=== PATIENT | female | born 1955 | race Caucasian/White ===

== ENCOUNTER 2022-10-15 07:42 | Outpatient (REF) | payer BC, SELFPAY | END 2022-10-15 07:43 | disposition home or self-care (01) | LOC: HO.HOSX 07:42 | PROVIDERS: Visit Provider Orthopaedic Surgery | DX: Z13.89 Encounter for screening for other disorder (principal) ==

== ENCOUNTER 2022-10-16 09:48 | Outpatient (REF) | payer BC, SELFPAY ==
--- NOTE | ~2022-10-16 | XR_ITS ---
EXAMINATION: XR HIP, LEFT WITH AP PELVIS CLINICAL INFORMATION: Pain. COMPARISON: None available. TECHNIQUE: An AP view of the pelvis and a frog-leg lateral view of the left hip were obtained. FINDINGS: No fracture. Alignment is anatomic. Hip joint spaces are well-maintained. The femoral heads are smooth. The tissues are unremarkable. An inferior vena cava filter device is seen. There are degenerative changes of the lower lumbar spine. Multiple pelvic phleboliths are noted. XR/XR hip LT min 2V IMPRESSION: Unremarkable radiographic appearance of the pelvis and left hip. EXAMINATION: XR KNEE, LEFT CLINICAL INFORMATION: Pain. COMPARISON: None available. TECHNIQUE: AP, lateral and sunrise views of the left knee were obtained. FINDINGS: Bony alignment and mineralization are normal. There is moderately severe asymmetric narrowing of the medial joint space compartment. The lateral and patellofemoral joint space compartments are well-maintained. There is tricompartment peripheral osteophyte formation. No fracture or dislocation is seen. There is a moderately large left knee joint effusion. No foreign body is seen. IMPRESSION: 1. There is tricompartment osteoarthritic change of the left knee, most pronounced of the lateral joint space compartment, where it is moderately severe. 2. No fracture or dislocation is seen. 3. There is a moderately large joint effusion.
--- NOTE | ~2022-10-16 | XR_ITS ---
EXAMINATION: XR HIP, LEFT WITH AP PELVIS CLINICAL INFORMATION: Pain. COMPARISON: None available. TECHNIQUE: An AP view of the pelvis and a frog-leg lateral view of the left hip were obtained. FINDINGS: No fracture. Alignment is anatomic. Hip joint spaces are well-maintained. The femoral heads are smooth. The tissues are unremarkable. An inferior vena cava filter device is seen. There are degenerative changes of the lower lumbar spine. Multiple pelvic phleboliths are noted. XR/XR knee LT 3V IMPRESSION: Unremarkable radiographic appearance of the pelvis and left hip. EXAMINATION: XR KNEE, LEFT CLINICAL INFORMATION: Pain. COMPARISON: None available. TECHNIQUE: AP, lateral and sunrise views of the left knee were obtained. FINDINGS: Bony alignment and mineralization are normal. There is moderately severe asymmetric narrowing of the medial joint space compartment. The lateral and patellofemoral joint space compartments are well-maintained. There is tricompartment peripheral osteophyte formation. No fracture or dislocation is seen. There is a moderately large left knee joint effusion. No foreign body is seen. IMPRESSION: 1. There is tricompartment osteoarthritic change of the left knee, most pronounced of the lateral joint space compartment, where it is moderately severe. 2. No fracture or dislocation is seen. 3. There is a moderately large joint effusion.
== END 2022-10-16 09:49 | disposition home or self-care (01) ==
LOC: HO.HOSX 09:48
PROVIDERS: Visit Provider Orthopaedic Surgery
DX: M25.562 Pain in left knee (principal); M25.552 Pain in left hip
CPT/HCPCS: 73502; 73562

== ENCOUNTER 2022-10-16 09:48 | Outpatient (AMB) | payer BC, SELFPAY ==
--- NOTE | 2022-10-16 09:54 | MHC.OFFVIS ---
Intake Intake Visit Reasons: New Patient - Left Knee Pain Intake Note: Kandis is a 66 year old female who presents today as a new patient for a evaluation for her left knee pain and left hip pain. She describes her left knee pain as sharp in nature. She was seen at [facility] several years ago. She did have both cortisone injections and viscosupplementation injections which gave her minimal relief. She was told that she would likely need left total knee replacement surgery at some point in the future. She is trying to hold off on surgery for as long as she can. The patient did undergo open left knee lateral meniscectomy surgery as a teenager when a family member fell on her left leg. She does try to exercise on a daily basis. She has also done physical therapy exercises which gave her some relief. The patient describes her left hip pain as aching in nature. She notices her left pain mostly when she sleeps on her left side. She denies any numbness or tingling in either of her legs. She has tried Tylenol and ibuprofen which gave her minimal relief. Allergies naproxen Allergy (Intermediate, Verified 10/16/22 10:03) Unknown propoxyphene [From Darvon] Allergy (Intermediate, Verified 10/16/22 10:03) Unknown Sulfa (Sulfonamide Antibiotics) Allergy (Intermediate, Verified 10/16/22 10:03) Unknown Medication List - Last Reconciled 10/16/22 by Ariel Zambrano MD lisinopril 5 mg PO DAILY [facility] Social History (Updated 10/16/22 @ 10:04 by Ramin Peters) Alcohol intake: current Patient Tobacco Use Status: Never used Tobacco Physical Exam Const Other: Well-nourished well-developed very friendly female awake alert and oriented x3 in no acute distress Extrem Other: Bilateral lower extremity examination shows good capillary refill, no skin lesions noted, normal sensation light touch Left knee examination shows a minimal effusion, palpable crepitus with range of motion, pain with range of motion, range of motion from -3 degrees to 115 degrees, no instability Left hip examination shows slightly decreased range of motion when compared to her right hip, tenderness over her bursa, no overlying skin lesions Results Reviewed Results Reviewed: X-rays of the patient's left knee show moderate to severe joint space narrowing and subchondral sclerosis most significant in the lateral compartment, no acute bony abnormalities X-rays of the patient's left hip show mild diffuse joint space narrowing, no acute bony abnormalities Assessment & Plan Assessment & Plan (1) Left hip pain: Code(s): M25.552 - Pain in left hip Plan: Ms. Mitchell presents with left knee pain due to degenerative joint disease as well as left hip pain due to greater trochanteric bursitis as well as lumbar spine pathology. I had a lengthy discussion with the patient regarding the treatment options. We will hold off on a cortisone injection at this time. I did give her a prescription for a Medrol Dosepak. She will continue with her home exercise program. She will also continue with her home stretching program. She will follow up with me on an as-needed basis should her symptoms worsen in any way. I spent 22 minutes in reviewing the patient's records and imaging studies, seeing the patient and documenting in the medical record. (2) Left knee pain: Code(s): M25.562 - Pain in left knee Orders: Orders XR knee LT 3V Today M25.562 - Pain in left knee XR hip LT min 2V Today M25.552 - Pain in left hip Medications: New methylprednisolone (Medrol (Sy)) PO PER PKG DIR 21 ea 0RF Coding Level of Care Code New Pt Level 2 (41862) Diagnoses Left hip pain M25.552 Left knee pain M25.562
== END 2022-10-16 10:47 | disposition home or self-care (01) ==
PROVIDERS: Visit Provider Orthopaedic Surgery
DX: M25.552 Pain in left hip (principal); M25.562 Pain in left knee
CPT/HCPCS: 99202

== ENCOUNTER 2022-12-15 08:23 | Outpatient (REF) | payer MEDICARE, SELFPAY ==
--- NOTE | ~2022-12-15 | XR_ITS ---
EXAMINATION: XR LUMBOSACRAL SPINE CLINICAL INFORMATION: Low back pain COMPARISON: None available. TECHNIQUE: Three views of the lumbosacral spine. FINDINGS: There is marked dextroscoliosis of lumbar spine. There is no evidence of fractures or spondylolysis listhesis. Evaluation of all lateral view is limited due to significant scoliosis there is marginal spurring. The level of L4-L5 on the right with bridging osteophyte formation and on the left at the level of L2-L3. There is IVC filter projecting over the lateral aspect of lower lumbar spine. Soft tissues unremarkable. XR/XR lumbar spine 2-3V IMPRESSION: Multilevel degenerative changes and dextroscoliosis.
== END 2022-12-15 08:24 | disposition home or self-care (01) ==
LOC: HO.HOSX 08:23
PROVIDERS: Visit Provider Orthopaedic Surgery
DX: M54.50 Low back pain, unspecified (principal)
CPT/HCPCS: 72100; 99212

== ENCOUNTER 2022-12-15 08:23 | Outpatient (AMB) | payer MEDICARE, SELFPAY ==
--- NOTE | 2022-12-15 08:35 | A.OFFVIS_ITS ---
Intake Vital Signs 12/15/22 08:37 Height 5 ft 5 in Weight 130 lb BMI 21.6 Intake Visit Reasons: new Prob - lower back pain Intake Note: Kandis 67 yr old female presents today for a new problem visit for her lumbar pain. States pain is at lumbar and hip radiating down her leg. Patient last seen with Dr. Zambrano for her hip and knees,who Rx'd patient prednisone, which only provided 2 days of relief. The patient states that she was diagnosed with scoliosis at age 17. She did not wear a brace. She did have cortisone injections given into her low back several years ago which gave her minimal relief. The patient reports pain and weakness in her right leg. The patient has difficulty walking because of the pain. She has tried Tylenol and anti- inflammatory medicines as well as a Medrol Dosepak which gave her minimal relief. The patient has done physical therapy for 12 weeks over the last 6 months which aggravated her pain. Allergies naproxen Allergy (Intermediate, Verified 12/15/22 08:38) Unknown propoxyphene [From Darvon] Allergy (Intermediate, Verified 12/15/22 08:38) Unknown Sulfa (Sulfonamide Antibiotics) Allergy (Intermediate, Verified 12/15/22 08:38) Unknown Medication List - Last Reconciled 12/15/22 by Ariel Zambrano MD lisinopril 5 mg PO DAILY methylprednisolone (Medrol (Sy)) PO PER [facility] Social History (Updated 12/15/22 @ 08:39 by Terrie Daigle [facility]) Alcohol intake: current Patient Tobacco Use Status: Never used Tobacco Current occupational status: employed Current occupation: hygienist Physical Exam Vital Signs: BMI result Body Mass Index 21.6 Const Other: Well-nourished well-developed very friendly female awake alert and oriented x3 in no acute distress Back/Spine/Pelvis Other: Low back examination shows right-sided paraspinal muscle tenderness, pain with range of motion, positive straight leg raise test on the right at 70 degrees, 4/5 strength with testing of her right hip flexors and knee extensors when compared to 5/5 strength on her left Results Reviewed Results Reviewed: X-rays of the patient's lumbar spine taken today show severe diffuse degenerative disc disease, scoliosis, no acute bony abnormalities Assessment & Plan Assessment & Plan (1) Low back pain: Code(s): M54.50 - Low back pain, unspecified Plan: Ms. Mitchell presents with progressively worsening low back pain which radiates down her right leg the well as associated right leg weakness most likely due to lumbar stenosis. Thus, I will send the patient for a MRI of her lumbar spine for further evaluation. If the patient does have significant stenosis or a disc herniation I will refer her to the spine center here at [facility] for further evaluation. Feel free to call me at any time should questions regarding her orthopedic management arise. I spent 22 minutes in reviewing the patient's records and imaging studies, seeing the patient and documenting in the medical record. Orders: Orders XR lumbar spine 2-3V Today M54.50 - Low back pain, unspecified MR lumbar spine wo con Today M54.50 - Low back pain, unspecified, M79.604 - Pain in right leg Coding Level of Care Code Est Pt Level 2 (62036) Diagnoses Low back pain M54.50
[2022-12-15 08:37] VITALS: BMI 21.6
== END 2022-12-15 08:49 | disposition home or self-care (01) ==
PROVIDERS: Visit Provider Orthopaedic Surgery
DX: M54.50 Low back pain, unspecified (principal)
CPT/HCPCS: 99212

== ENCOUNTER 2023-01-20 18:16 | Outpatient (REF) | payer MEDICARE, SELFPAY ==
--- NOTE | ~2023-01-20 | MR_ITS ---
EXAMINATION: MR LUMBAR SPINE WITHOUT CONTRAST CLINICAL INFORMATION: 67-year-old with left leg pain. COMPARISON: None available. TECHNIQUE: MRI of the lumbar spine was obtained using routine sequences without contrast. FINDINGS: Coronal Alignment: There is zthotvrk-wf-iycjmc lumbar dextroscoliosis, convex to the right at L2 with mild hxir-zj-djzde lateral listhesis at L2-L3, L3-L4 and L4-L5 and slight xruxe-um-cylj lateral listhesis at L1-L2. There is also mild sdner-ag-mvsy lateral listhesis at T11-T12. Sagittal Alignment: There is mild grade 1 degenerative spondylolisthesis at L3-L4 and trace anterior marginal spondylolisthesis at L2-L3 with mild retrolisthesis at L1-L2. Lumbosacral Junction: Normal. Vertebral Bodies: Mild chronic right lateral wedging of the L5 vertebral body is noted. Otherwise vertebral body heights are well maintained. No acute or nonhealed fractures. Disc Spaces and Endplates: Moderately advanced multilevel DDD and spondylosis seen throughout the visualized thoracolumbar spine with severe disc space height loss at L4-L5 and L5-S1 and at T11-T12. There is multilevel disc desiccation. There are Schmorl's nodes at multiple levels with multilevel anterolateral spondylosis. Spinal Canal: No abnormal developmental findings. Bone Marrow: There are type I degenerative marrow signal changes along the endplates at L4-L5 and L5-S1 and at T11-T12 with type II marrow signal changes along the endplates at L4-L5. There is a 2.4 cm benign vertebral hemangioma in the L2 vertebral body. No suspicious marrow-replacing process or bone marrow edema. Conus Medullaris: Terminates at L1. Morphology and signal is normal. Intradural Nerve Roots: Within normal limits. L5-S1: There is concentric disc-osteophyte complex asymmetric to the right, with enqn-br-vrrhazxy facet arthrosis, right more than left. There is slight flattening of the ventral dural sac asymmetric to the right without significant central canal stenosis. There is mild narrowing of the right lateral recess without definite neural impingement. There is anyrsazb-wc-pubsog right-sided neural foraminal stenosis with facet spurring and disc-osteophyte complex abutting the exiting right L5 nerve root. Mild foraminal narrowing noted on the left. L4-L5: There is concentric disc-osteophyte complex asymmetric to the right, with mild flattening of the dural sac, right more than left, with ligamentum flavum thickening and iqpb-pj-jdparznr facet arthropathy, right more than left. No significant central canal stenosis. There is moderate right subarticular recess narrowing with slight encroachment on the traversing right L5 nerve root. There is moderate right-sided neural foraminal narrowing without definite exiting neural impingement. L3-L4: Unroofing of the posterior disc margin is noted with superimposed diffuse disc bulging asymmetric to the left, with flattening of the ventral dural sac. Ligamentum flavum thickening is noted, left more than right, with mild right and moderate left-sided facet arthropathy. Mild central spinal canal stenosis is noted with dddf-pd-vfszrybp narrowing of the subarticular recesses bilaterally without definite traversing neural impingement. There is moderate left and mild right-sided neural foraminal stenosis. L2-L3: Shallow left subarticular disc protrusion noted with flattening of the left side of the dural sac with mild facet arthrosis and ligamentum flavum thickening without central canal stenosis. There is mild narrowing of the left subarticular zone without traversing neural impingement. No significant neural foraminal stenosis. L1-L2: Mild disc-osteophyte complex noted asymmetric to the right with mild flattening of the dural sac and mild facet arthropathy on the left. No central canal stenosis. Mild narrowing of the left subarticular recess noted. No significant neural foraminal stenosis. Paravertebral and Included Extraspinal Soft Tissues: There is posterior paraspinal and psoas muscle sarcopenia. Otherwise unremarkable. MR/MR lumbar spine wo con IMPRESSION: 1. Lumbar dextroscoliosis, with multilevel lateral subluxations and grade 1 degenerative spondylolisthesis at L3-L4. 2. Multilevel DDD and spondylosis, with multilevel disc-osteophyte complexes and disc bulging with multilevel bilateral facet arthropathy and ligamentum flavum thickening. 3. Mild spinal canal stenosis at L3-L4 with rdpj-rp-ixfjzfwo subarticular recess narrowing at this level. There is right subarticular recess stenosis at L4-L5, mild right lateral recess stenosis at L5-S1 and mild left subarticular recess stenosis at L2-L3. 4. Multilevel bilateral neural foraminal stenosis, most apparent on the right at L5-S1 and, to lesser degrees, on the left at L3-L4 and on the right at L4-L5. 5. Mild chronic right lateral wedging of the L5 vertebral body. No acute or nonhealed fractures. 6. Posterior paraspinal and psoas muscle sarcopenia.
== END 2023-01-20 18:17 | disposition home or self-care (01) ==
LOC: HO.MRI 18:16
PROVIDERS: Visit Provider Orthopaedic Surgery
DX: M54.50 Low back pain, unspecified (principal); M79.604 Pain in right leg
CPT/HCPCS: 72148

== ENCOUNTER 2023-02-26 12:42 | Outpatient (AMB) | payer MEDICARE, SELFPAY ==
--- NOTE | 2023-02-26 13:02 | A.OFFVIS_ITS ---
Intake Intake Visit Reasons: low back pain Financial Administrative Assistant Required: No Allergies naproxen Allergy (Intermediate, Verified 12/15/22 08:38) Unknown propoxyphene [From Darvon] Allergy (Intermediate, Verified 12/15/22 08:38) Unknown Sulfa (Sulfonamide Antibiotics) Allergy (Intermediate, Verified 12/15/22 08:38) Unknown [facility] Social History (Updated 12/15/22 @ 08:39 by MELVI Barnard) Alcohol intake: current Patient Tobacco Use Status: Never used Tobacco Current occupational status: employed Current occupation: hygienist Assessment & Plan Assessment & Plan (1) Scoliosis (and kyphoscoliosis), idiopathic: Code(s): M41.20 - Other idiopathic scoliosis, site unspecified Plan Dear Dr Zambrano, Thank you for referring Mrs Mitchell to our office today. She is a very nice 67-year-old female with a known history of scoliosis since she was age 17, who has had on and off issues with her back her hip and her knee for many years. She is generally treated these conservatively and generally successfully with intermittent physical therapy, core exercises and if she has significant pain she will take Tylenol or Advil/Motrin. About 9 months ago she started to notice a pain in the lateral aspect of her hip radiating down the lateral aspect of her thigh. It is significantly worse when she is trying to go up and down stairs. It can bother her when she is standing or walking. She has a arthritic knee which she has been told in the past will need replacement. She has been trying to hold this off as long as possible. She feels as though this may somehow be connected to her current issue with her hip pain and her lateral thigh pain. She does have a degree of back pain on a daily basis but it is not debilitating. She has not have any radicular pain in the sense that there is nothing radiating down into her lower leg and foot. There is no significant amount of tingling or numbness associated with this hip pain. She sent today to see us for an evaluation with an MRI showing a dextroscoliosis. PMH: History of hypertension, remote history of a pulmonary embolus status post IVC filter. She was never diagnosed with a DVT anywhere along the timeframe that she had these issues with the pulmonary embolus. She has since been discontinued off anticoagulation for many years without any issues. History of bunionectomy. Other than that she is very healthy and active. Social hx: She does not smoke, no significant alcohol use, no recreational drug use Medications: Lisinopril and supplements, baby aspirin Allergies: Darvon, sulfa naproxen Physical exam: She is awake alert oriented no acute distress, she has full strength of bilateral lower extremities with normal reflexes. She did have a significant amount of pain, I was able to reproduce the pain that she feels down her lateral thigh with internal rotation of her hip. In supine position PINEDA testing was positive along the lateral edge of her hip going down into her lateral thigh. Straight leg raise was negative. She has tenderness over the trochanteric bursa. Imaging review: She has a lumbar MRI and x-rays done here at [place] showing a significant dextroscoliosis throughout the whole lumbar spine. She does not have any meaningful amount of nerve compression. The report suggests she may have some narrowing in the lateral recess on the right at multiple levels, but I do not see any overt nerve compression. She has facet arthropathy at multiple levels. Spondylolisthesis at L3-4. Impression: 67-year-old female presents to the office for evaluation of a lateral left hip pain going into her left lateral thigh. She has been doing conservative treatment in the form of physical therapy and will take ogxw-msp-dkedzid medications if she has having a really bad day. Generally she tries to just push through it and remain active. She does have a degree of back pain but it is not an ever present feature limiting her quality of life. It is more an annoyance that she has had on and off for a very long time. She does not have any true radicular symptoms, she has negative straight leg raise with intact strength and reflexes. I think the pain in her left hip into her lateral thigh is a combination of factors related to her scoliosis giving her malalignment of her pelvis and probably extra stress on the IT band in the troch anteric bursa. She does have pain with internal and external rotation of her hip that I can reproduce very similar to what she feels on a day-to-day basis. I am not sure if this is something that can be treated with a cortisone injection or a trigger point injection. I will defer that to you. I do not think at this time she is a surgical candidate for scoliosis correction as the back pain is not a significant debilitating feature of her clinical presentation. She has been dealing with this back pain most of her life and isn't interested in surgery in general for her back because she understands what a significant undertaking it would be to fix it. This certainly seems reasonable. If something changes to where she has having a significant limitation in her life because the back pain she will call us and we can reassess. Thank you for allowing us to care for your patient. The total time spent with this visit with this patient was 45 minutes reviewing history, physical exam, lumbar imaging review, and implementation of treatment plan or further diagnostic testing Brian Trotter MD,PhD [facility] Coding Level of Care Code New Pt Level 4 (60643) Diagnoses Scoliosis (and kyphoscoliosis), idiopathic M41.20
== END 2023-02-26 13:31 | disposition home or self-care (01) ==
PROVIDERS: Referring Provider Orthopaedic Surgery; Visit Provider Physician Assistant
DX: M41.20 Other idiopathic scoliosis, site unspecified (principal)
CPT/HCPCS: 99204

== ENCOUNTER → 2023-02-26 12:42 | Outpatient (BNVA) | payer MEDICARE, SELFPAY | PROVIDERS: Referring Provider Orthopaedic Surgery; Visit Provider Physician Assistant | DX: M41.20 Other idiopathic scoliosis, site unspecified (principal) | CPT/HCPCS: 99202 ==